=== PATIENT | male | born 1975 | race Two or more races ===

== ENCOUNTER 2017-01-16 12:49 | Day surgery (SDC) | payer SELFPAY ==
[2017-01-16] MEDS ORDERED: IOPAMIDOL 300 (61%) 100 ML VIAL IV ONE (12:50)
[2017-01-16] MEDS ORDERED: KETOROLAC TROMETHAMINE 30 MG/ML 1 ML VIAL ONE ×2 (14:21→20:02)
[2017-01-16 14:37] LABS: ABSOLUTE NEUTROPHIL COUNT 13.4 K/mm3 (1.8-7.7); BASO % 0.1 % (0.2-1.0); HEMATOCRIT 45.4 % (32.0-52.0); HEMOGLOBIN 15.1 gm/l (14.0-18.0); IMM NEUT # 0.1 K/mm3 (0-0.2); IMM NEUT% 0.4 % (0-1); LYMPH # 0.3 (1.0-4.8); MEAN CELL VOLUME 90.3 fl (80.0-94.0); MEAN CORPUSCULAR HGB CONC 33.3 g/dl (33.0-37.0); MEAN PLATELET VOLUME 10.9 fl (7.4-10.4); MONO # 0.2 (0.0-0.8); MONO % 1.2 % (4-12); NEUT % 96.3 % (43-75); PLATELET COUNT 167 K/mm3 (130-400); RED CELL DISTRIBUTION WIDTH 11.6 % (11.5-14.5)
[2017-01-16 14:55] LABS: ALB/GLOB RATIO 1.4 (>1.0); ALBUMIN 4.1 gm/dL (3.5-5.7)
--- NOTE | 2017-01-16 15:25 | CT ---
Exam Type: ABD/PELVIS W/ CON Date and Time: 01/16/2017 1:51 PM Clinical information: Right lower quadrant pain Comparison: None Technique: Contiguous axial 4 mm images were obtained from the lung bases through the pelvis after the uneventful IV administration of 100 cc of Isovue-300. Sagittal and coronal reformations with high resolution lung algorithm images were also obtained at this time. CT DI: 4.7 DLP 237.1 FINDINGS: Lung base : Dependent and atelectatic changes note the lung bases. Visualized heart:There is no pericardial effusion. LIVER: Too small to characterize hypodensity is identified within the posterior segment right lobe of the liver inferiorly on image 36. BILE DUCTS: normal caliber. GALLBLADDER: No calcified gallstones. Normal caliber wall. PANCREAS: within normal limits. SPLEEN: within normal limits. ADRENALS: within normal limits. KIDNEYS: within normal limits. Stomach and small BOWEL: Normal caliber. Large bowel: Air and stool are noted within the large bowel. Appendix measures 13 mm on image 75. Fluid and appendicoliths are noted within its lumen. Periappendicular fat stranding is also present. No abscess or free air. LYMPH NODES: No enlarged mesenteric lymph nodes. PERITONEUM: no ascites or free air, no fluid collection. VESSELS: within normal limits RETROPERITONEUM: within normal limits. ABDOMINAL WALL: within normal limits. Bladder: Normal BONES: within normal limits. IMPRESSION: Simple appendicitis with appendicolith as above. Findings were called to Dr. Musa at approximately 1521 hours on 01/16/2017.
--- NOTE | 2017-01-16 15:25 | RAD ---
01/16/2017 3:22 PM CHEST - 2 VIEWS History: Fever, abdominal pain Comparison: None Findings: Two views of the chest are obtained. The lungs are clear with out effusion or pneumothorax. The cardiomediastinal silhouette is unremarkable.. The osseous structures are intact.. IMPRESSION: No acute intrathoracic process.
[2017-01-16] MEDS ORDERED: PIPERACILLIN SODIUM/TAZOBACTAM 4.5 G VIAL IV ONE (15:55)
[2017-01-16 16:15] LABS: URINE BILIRUBIN NEGATIVE (NEGATIVE); URINE BLOOD NEGATIVE (NEGATIVE); URINE GLUCOSE (UA) NEGATIVE (NEGATIVE); URINE LEUKOCYTE ESTERASE NEGATIVE (NEGATIVE); URINE NITRITE NEGATIVE (NEGATIVE); URINE PROTEIN NEGATIVE (NEGATIVE); URINE UROBILINOGEN NORMAL (0-1 mg/dl)
[2017-01-16] MEDS ORDERED: PIPERACILLIN SODIUM/TAZOBACTAM 4.5 G in NS 0.9% (MINI-BAG PLUS) 100 ML IV ONE (16:15)
[2017-01-16 16:20] LABS: URINE APPEARANCE CLEAR; URINE COLOR YELLOW
[2017-01-16 16:39] LABS: BAND 19 % (0-10); BASOPHIL 0 % (0-1); EOSINOPHIL 0 % (1-3); LYMPHOCYTE 4 % (15-45); MONOCYTE 1 % (4-12); NEUTROPHILS 76 % (43-75); PLATELET ESTIMATE NORMAL (NORMAL); TOTAL CELLS COUNTED 100
--- NOTE | 2017-01-16 17:28 | PDOC1 ---
History & Physical: CC: RLQ Pain HPI: 41yo M with RLQ Pain. The pain started yesterday as a generalized constant pain. Over the last 24 hours the pain worsened and migrated to the RLQ. He has had associated subjective fevers, but denies any any recent C/NV/CP/SOB, change in bladder fx, constipation, diarrhea, unintentional weight loss, easy bleeding/ bruising, or other associated symptoms. REVIEW OF SYSTEMS CONSTITUTIONAL: As per HPI. EARS, NOSE, MOUTH, THROAT: No sneezing or runny nose CARDIOVASCULAR: As per HPI. RESPIRATORY: As per HPI. GASTROINTESTINAL: As per HPI. GENITOURINARY: As per HPI. NEUROLOGICAL: No history of seizures HEMATOLOGIC: As per HPI. MUSCULOSKELETAL: No change in strength. LYMPHATICS: No history of splenectomy. PSYCHIATRIC: No change in personality or affect PMH: None PSH: None Meds: None All: NKDA SH: Denies smoking or EtOH FH: No FH of IBD or cancers Vitals (last 24 hours): T 101.4, HR 100-110s, remainder of vitals normal Physical Exam: General/Constitutional: Vitals documented above, comfortable in NAD Psych: A&O x 3, normal judgment and insight. Recent and remote memory intact. Mood and affect normal. Eyes: Pupils equal, no scleral icterus Ears, Nose, Mouth, Throat: gross hearing intact Neck: Supple Heart: RRR, no LE edema Lungs: Equal rise and fall of chest wall, non-labored breathing, no audible wheezes Neuro: Gross sensation intact Abdomen: Soft, ND, moderate RLQ TTP with voluntary guarding Labs (Last 24 hours): Laboratory Results - last 24 hr 01/16/17 01/16/17 14:15 15:55 WBC 13.9 H RBC 5.03 Hgb 15.1 Hct 45.4 MCV 90.3 MCH 30.0 MCHC 33.3 RDW 11.6 Plt Count 167 Neut % (Auto) 96.3 H Lymph % (Auto) 2.0 L Bibb % (Auto) 1.2 L Baso % (Auto) 0.1 L Absolute Neuts (auto) 13.4 H Neutrophils % (Manual) 76 H Band Neutrophils % 19 H Lymphocytes % (Manual) 4 L Monocytes % (Manual) 1 L Eosinophils % 0.0 L Eosinophils % (Manual) 0 L Basophils % 0 Platelet Estimate Normal Normal RBC Morphology Normal VBG Lactate 2.7 H Sodium 133 L Potassium 3.8 Chloride 98 Carbon Dioxide 24 Anion Gap 15 BUN 13 Creatinine 0.9 Estimated GFR 93 BUN/Creatinine Ratio 14 Glucose 146 H Calcium 9.0 Total Bilirubin 1.1 H AST 12 L ALT 11 Alkaline Phosphatase 52 Total Protein 7.0 Albumin 4.1 Globulin 2.9 Albumin/Globulin Ratio 1.4 Lipase 3 L Urine Color Yellow Urine Appearance Clear Urine pH 7.0 Ur Specific [place] 1.010 Urine Protein Negative Urine Glucose (UA) Negative Urine Ketones Negative Urine Blood Negative Urine Nitrite Negative Urine Bilirubin Negative Urine Urobilinogen Normal Ur Leukocyte Esterase Negative % Immature Granulocyt 0.4 Radiology: CT A/P (01/16/17): 13mm appendix with fecalith and associated inflammatory changes. A/P: 41yo M with history, physical, laboratory, and imaging findings c/w acute appendicitis. He was given IV Zosyn in the ED. I obtaind informed consent via Senior Trial Attorney ([employer]). We discussed the risks of surgery to include, but not limited to: bleeding, infection, pain, scar , damage to surrounding structures (small intestine, colon, bladder), need for additional procedures (conversion to open procedure, ileocectomy), failure to improve health, and risks of anesthesia (heart attack, arrhythmia, blood clot, stroke, ). The patient understands the risks and agrees to proceed to surgery. To OR for laparoscopic appendectomy raymond. Emory Will MD Staff General Surgeon C: [phone]
[2017-01-16] MEDS ORDERED: LACTATED RINGERS 1,000 ML ONE (17:35)
[2017-01-16] MEDS ORDERED: IV START KIT ONE (17:41)
[2017-01-16] MEDS ORDERED: BUPIVACAINE 0.5% (PRES FREE) 30 ML VIAL ONE (18:42)
[2017-01-16] MEDS ORDERED: LIDOCAINE 1%/EPI 1:100,000 (MULTI DOSE) 30 ML VIAL ONE ×2 (18:42→19:30)
[2017-01-16] MEDS ORDERED: MIDAZOLAM HCL 1 MG/ML 2ML VIAL ONE (18:45)
[2017-01-16] MEDS ORDERED: FENTANYL 100 MCG/2 ML VIAL ONE (18:45)
[2017-01-16] MEDS ORDERED: BUPIVACAINE 0.5% W/EPI SDV 30 ML VIAL ONE (19:27)
[2017-01-16] MEDS ORDERED: KETAMINE HCL UD SYRINGE 100 MG/2 ML IV ONE (19:36)
[2017-01-16] MEDS ORDERED: FENTANYL 100 MCG/2 ML VIAL IV PRN (19:39)
[2017-01-16] MEDS ORDERED: PROMETHAZINE HCL 25 MG/ML VIAL IM PRN (19:39)
[2017-01-16] MEDS ORDERED: ONDANSETRON 4 MG/2ML 2 ML VIAL IV PRN ×2 (19:39→22:00)
[2017-01-16] MEDS ORDERED: MORPHINE SULFATE 4 MG/ML SYRINGE IV PRN ×2 (19:39→21:41)
[2017-01-16] MEDS ORDERED: DEXAMETHASONE SOD PHOS 4 MG/1 ML VIAL ONE (19:43)
[2017-01-16] MEDS ORDERED: LACTATED RINGERS 1,000 ML IV SCH (19:45)
[2017-01-16] MEDS ORDERED: NEOSTIGMINE METHYLSULFATE 1 MG/ML DOSE ONE (20:05)
[2017-01-16] MEDS ORDERED: GLYCOPYRROLATE 0.2 MG/ML 1ML VIAL ONE (20:05)
--- NOTE | 2017-01-16 20:27 | PCMON ---
OPERATIVE REPORT Pre-Op Diagnosis: Acute appendicitis Post-Op Diagnosis: Acute suppurative appendicitis Operation: Laparoscopic Appendectomy Surgeon: Roger Will MD Girls Tennis Coach: None Anesthesia: GETA Pre-Operative Antibiotics: Zosyn 3.375g Specimen Sent to Lab: Appendix Date of Operation: 01/16/2017 Infection Classification: 3 Estimated Blood Loss: 5mL Indication for Procedure: The patient is a 41 year old male with a one day history of migratory right lower quadrant pain. He has an elevated WBC and a CT scan shows a 13mm appendix with an associated fecalith. THese findings are consistent with acute appendicitis. The plan for today is a laparoscopic appendectomy. Description of Findings: Detailed Operative Report: The patient was met in the pre-operative holding area by the operating team. All questions and concerns were addressed appropriately. The patient was taken to the operating room where general anesthesia was induced. A Arguelles catheter was placed. The abdomen was prepped and draped in the normal sterile fashion. ~ Local anesthetic was injected into the proposed infra-umbilical incision site. The skin was incised. The fascia was elevated and incised. Direct entry into the peritoneum was confirmed. A 12mm~balloon trocar was inserted into the abdomen. The abdomen was insufflated to a pressure of 15mm Hg, which the patient tolerated well. The laparoscope was inserted and the abdomen was inspected. There were no injuries from initial trocar placement. Two additional 5mm trocars were placed in the left lower quadrant and supra-pubic positions. The table was placed in the Trendelenburg position with the right side up. ~ The appendix was readily visible. It appeared inflamed and suppurative, but not perforated. The appendix was grasped and a mesenteric window was created at the base of the appendix. The appendix was divided with a linear cutting stapler using a 45mm blue load. The mesoappendix was similarly divided using a 45mm white load. The appendix was placed into an endoscopic retrieval bag. The right lower quadrant was thoroughly irrigated and hemostasis was ensured. ~ Secondary trocars were removed under direct vision. The infra-umbilical trocar was removed along with the specimen and the abdomen was allowed to collapse. The fascia of the infra-umbilical site was closed with 0-Vicryl in a figure of eight fashion. All skin was closed with 4-0 Monocryl. The wounds were dressed with mastisol, steri-strips, and band-aids. The Arguelles catheter was removed. The patient was then awakened from anesthesia, extubated, and transferred to the PACU without complication. Prior to closing, all sponge and instrument counts were correct. ROGER WILL MD
[2017-01-16] MEDS ORDERED: BLISTEX LIPSTICK 1 EACH TP PRN (21:30)
[2017-01-16] MEDS ORDERED: MORPHINE SULFATE 2 MG/ML SYRINGE IV PRN (21:30)
[2017-01-16] MEDS ORDERED: MENTHOL/CETYLPYRD 1 EACH LOZENGE PO PRN (21:30)
[2017-01-16] MEDS: LACTATED RINGERS 1,000 ML IV SCH (22:20)
[2017-01-16 23:14] VITALS: BMI 22.5
[2017-01-17] MEDS: OXYCODONE/ACETAMINOPHEN 5/325 MG TABLET PO PRN ×2 (06:19→10:16)
[2017-01-17] MEDS: LACTATED RINGERS 1,000 ML IV SCH (07:13)
[2017-01-17 07:59] VITALS: BP 109/72
--- NOTE | 2017-01-17 09:05 | PDOC43 ---
- Subjective S: Pain improved, tolerated regular diet, no complaints O: Vitals and I/O below Physical Exam: General: Comfortable in NAD HEENT: NCAT Heart: RRR Lungs: Non-labored breathing Abdomen: Soft, ND, appropriate incisional TTP, no guarding. Incisions c/d/i covered with band-aids/steris A/P: 41yo M doing well POD#1 s/p laparoscopic appendectomy. Ready for discharge this AM. Emory Will MD General Surgeon - Objective Vital Signs Temperature 97.4 F 01/17/17 07:58 Pulse Rate 75 01/17/17 07:58 Respiratory Rate 16 01/17/17 07:58 Blood Pressure 109/72 01/17/17 07:58 O2 Saturation by Pulse Oximetry 96 01/17/17 07:58 Oxygen Delivery Method Room Air Oxygen Flow Rate 0 Laboratory 01/16/17 14:15 01/16/17 14:15 01/16/17 14:15 VBG Lactate 2.7 H Total Bilirubin 1.1 H AST 12 L Lipase 3 L Active Medication Orders Category Date Time Status Lactated Ringers 1,000 ml Med 01/16/17 21:30 Active IV 125 mls/hr Lip [place] [Blistex] Med 01/16/17 21:30 Active 1 each TP PRN PRN Menthol/Cetylpyridinium [Cepacol] Med 01/16/17 21:30 Active 1 each PO PRN PRN Morphine Sulfate Med 01/16/17 21:30 Active 1 - 4 mg IV Q1H PRN Morphine Sulfate Med 01/16/17 21:41 Active 1 - 4 mg IV Q1H PRN Ondansetron 4 mg/2ml Vial [Zofran] Med 01/16/17 22:00 Active 4 mg IV Q4H PRN Oxycodone HCl/Acetaminophen [Percocet 5/325] Med 01/16/17 21:30 Active 1 - 2 tab PO Q4H PRN Sodium Chloride 0.9% Flush [Normal Saline 10ml Flush] Med 01/16/17 21:30 Active 10 - 50 ml IV PRN PRN Sodium Chloride 0.9% Flush [Normal Saline 10ml Flush] Med 01/17/17 01:00 Active 10 ml IV Q8HR Intake and Output 01/15/17 01/16/1717 23:59 23:59 23:59 Intake Total 4306 Output Total 3330 Balance 976
--- NOTE | 2017-01-19 12:31 | SURGPATH ---
[facility] [address] [place] [id number] Patient Name: LADY CROCKER MR#: [id number] : 1975 Gender: M Specimen #: [id number] Collected: 01/16/2017 Received: 01/18/2017 Reported: 01/19/2017 Submitting Phys: ROGER PIZANO Copy To Phys: [facility] Clinical History / Pre-Operative Diagnosis: Acute appendicitis Specimen Source / Surgical Procedure Performed: Appendix Interpretation: APPENDIX, APPENDECTOMY: - ACUTE APPENDICITIS WITH PERIAPPENDICITIS Electronically Signed Out Cory Matthew M.D. Gross Description: The specimen is received in formalin labeled with the patient's name and "appendix". The specimen consists of a 5.0 x 1.0 x 1.0 cm vermiform appendix with stapled base and mesoappendix. The serosa is dusky with exudate. The mucosa is hemorrhagic. A perforation or obstruction is not identified. A. sales representative including base and tip EVANGELINA Vick Microscopic Description: Sections show full thickness acute inflammation of the appendix wall. 1: [id number] K35.89
== END 2017-01-17 10:52 | disposition home or self-care (01) ==
LOC: ED 12:49 → SDC 15:47 → MS 21:00 → SDC 01-17 10:52
PROVIDERS: ATTEND Surgery
PROC: 0DTJ4ZZ Resection of Appendix, Percutaneous Endoscopic Approach (ICD-10-PCS; principal; 2017-01-16)
DX: K35.80 Unspecified acute appendicitis (principal)
CPT/HCPCS: 44970; 83605; 83690; 85025; 87040; 80053; 81003; 71020; 74177; 96375; 99284; 96374; 96361; 99285; J3010 ×2; J1100; J2270; A9270 ×2; J1885 ×2; J2250; J2001 ×2; J2405; J7120; J7030; J2543; Q9967